=== PATIENT | male | born 1975 | race Caucasian/White ===

== ENCOUNTER 2018-03-28 12:53 | Emergency (ER) | payer MEDICAID ==
[~2018-03-28] VITALS: Ht 182.9 cm; Wt 54.0 kg
[~2018-03-28 12:53] MED LIST: CEPH500C5 PO; CLIN300C85 PO
[2018-03-28 13:08] VITALS: BP 133/84
[2018-03-28] MEDS ORDERED: CefTRIAXone 250MG IM Kit w/LIDOcaine IM ONE (14:40)
[2018-03-28] MEDS ORDERED: cephalexin 500mg capsule PO ONE (14:40)
[2018-03-28] MEDS ORDERED: CEPH-572 PO (14:44)
[2018-03-28] MEDS ORDERED: DOXY-200 PO (14:44)
[2018-03-28] MEDS ORDERED: DOXYCYCLINE 100MG CAPSULE PO ONE (14:50)
[2018-03-28] MEDS ORDERED: doxycycline hyclate 100mg tablet.DR PO SCH (17:30)
== END 2018-03-28 15:12 | disposition left against medical advice (07) ==
LOC: ER 12:53
DX: L03.011 Cellulitis of right finger (principal); Z86.14 Personal history of Methicillin resistant Staphylococcus aureus infection; Z88.5 Allergy status to narcotic agent; Z79.899 Other long term (current) drug therapy
CPT/HCPCS: 96372; 99283; J0696

== ENCOUNTER 2020-08-28 21:35 | Emergency (ER) | payer MEDICAID ==
[~2020-08-28] VITALS: Ht 182.9 cm; Wt 77.3 kg
[~2020-08-28 21:35] MED LIST changes: -CEPH500C5 PO; +CLIN-97 PO; -CLIN300C85 PO; +LIDOcaine 1% W/epiNEPHrine 1:100,000 20ml vial ONE
[2020-08-29] MEDS ORDERED: ondansetron 4mg rapidly disintigrating tab PO ONE (00:10)
[2020-08-29] MEDS ORDERED: clindamycin 150mg capsule PO ONE (00:10)
[2020-08-29] MEDS ORDERED: bacitracin 15gm ointment TP ONE ×2 (00:10)
[2020-08-29] MEDS ORDERED: CLIN150C8 PO (00:11)
[2020-08-29 00:32] VITALS: BP 125/78
== END 2020-08-29 00:34 | disposition home or self-care (01) ==
LOC: ER 21:35
DX: L02.414 Cutaneous abscess of left upper limb (principal); M79.632 Pain in left forearm; Z86.14 Personal history of Methicillin resistant Staphylococcus aureus infection; Z88.5 Allergy status to narcotic agent; Z79.2 Long term (current) use of antibiotics
CPT/HCPCS: 10060; 99284

== ENCOUNTER → 2021-03-06 | Emergency (ER) | payer MEDICAID ==
[~2021-03-06] VITALS: Ht 91.4 cm; Wt 84.0 kg
[~2021-03-06] MED LIST changes: +CEPH250T PO; +CLIN150C8 PO; -LIDOcaine 1% W/epiNEPHrine 1:100,000 20ml vial ONE; +LIDOcaine 1% W/epiNEPHrine 1:200,000 10ml vial IJ ONE; +SULF1TAB45 PO
[2021-03-06 23:02] VITALS: BP 121/70
== END | disposition home or self-care (01) ==
LOC: ER 22:51
DX: L02.415 Cutaneous abscess of right lower limb (principal); L03.115 Cellulitis of right lower limb; Z86.14 Personal history of Methicillin resistant Staphylococcus aureus infection; Z88.5 Allergy status to narcotic agent; Z79.899 Other long term (current) drug therapy
CPT/HCPCS: 10060; 76882; 99284

== ENCOUNTER 2021-04-09 18:09 | Emergency (ER) | payer MEDICAID ==
[~2021-04-09 18:09] MED LIST changes: -CEPH250T PO; -LIDOcaine 1% W/epiNEPHrine 1:200,000 10ml vial IJ ONE; -SULF1TAB45 PO
== END 2021-04-09 18:31 | disposition left against medical advice (07) ==
LOC: ER 18:10
DX: R10.9 Unspecified abdominal pain (principal); Z53.21 Procedure and treatment not carried out due to patient leaving prior to being seen by health care provider

== ENCOUNTER 2021-08-20 00:59 | Emergency (ER) | payer MEDICAID ==
[~2021-08-20] VITALS: Ht 185.4 cm; Wt 94.0 kg
[2021-08-20 01:42] VITALS: BP 125/83
== END 2021-08-20 05:38 | disposition left against medical advice (07) ==
LOC: ER 00:59
DX: L97.519 Non-pressure chronic ulcer of other part of right foot with unspecified severity (principal); Z53.21 Procedure and treatment not carried out due to patient leaving prior to being seen by health care provider

== ENCOUNTER 2022-10-29 14:28 | Emergency (ER) | payer MEDICAID ==
[~2022-10-29] VITALS: Ht 182.9 cm; Wt 86.4 kg
[2022-10-29 14:40] VITALS: BP 126/86
[2022-10-29] MEDS ORDERED: hydrocortisone 1% cream 28gm TP STA (16:17)
[2022-10-29] MEDS ORDERED: cephalexin 500mg capsule PO ONE (16:20)
[2022-10-29] MEDS ORDERED: CEPH500C82 PO (17:40)
== END 2022-10-29 17:55 | disposition home or self-care (01) ==
LOC: ER 14:30
DX: L03.114 Cellulitis of left upper limb (principal); F17.200 Nicotine dependence, unspecified, uncomplicated; Z88.5 Allergy status to narcotic agent; Z79.899 Other long term (current) drug therapy; Z86.14 Personal history of Methicillin resistant Staphylococcus aureus infection
CPT/HCPCS: 99283

== ENCOUNTER 2024-06-03 21:55 | Emergency (ER) | payer OTHER, MEDICAID ==
[~2024-06-03] VITALS: Ht 182.9 cm; Wt 109.1 kg
[~2024-06-03 21:55] MED LIST changes: +CLIN-214 PO; -CLIN150C8 PO
[2024-06-03 22:18] VITALS: TEMP 98
[2024-06-03] MEDS: ondansetron 4mg rapidly disintigrating tab PO ONE (23:22)
[2024-06-03] MEDS: HYDROcodone/acetaminophen 5mg/325mg tablet PO ONE (23:22)
[2024-06-03] MEDS ORDERED: HYDR-3965 PO (23:55)
[2024-06-04] MEDS: bacitracin 15gm ointment TP ONE (00:23)
[2024-06-04 00:44] VITALS: BP 119/78; PULSE 67; O2SAT 96
[2024-06-04 00:47] VITALS: RESP 16
== END 2024-06-04 00:55 | disposition home or self-care (01) ==
LOC: ER 21:56
DX: S50.11XA Contusion of right forearm, initial encounter (principal); S40.011A Contusion of right shoulder, initial encounter; R07.89 Other chest pain; Z88.0 Allergy status to penicillin; Z88.5 Allergy status to narcotic agent; Z79.2 Long term (current) use of antibiotics; V87.8XXA Person injured in other specified noncollision transport accidents involving motor vehicle (traffic), initial encounter; Y93.89 Activity, other specified; Y92.89 Other specified places as the place of occurrence of the external cause; Y99.8 Other external cause status
CPT/HCPCS: 71250; 73030; 93005; 99284; A4565; A6258; A6446; A6449